=== PATIENT | female | born 1955 | race Caucasian/White ===

== ENCOUNTER 2019-03-17 09:15 | Outpatient (RCR) | payer BC, SELFPAY | END 2019-04-25 23:59 | disposition home or self-care (01) | LOC: ANHDMC 09:15 | PROVIDERS: PCP Internal Medicine; Visit Provider Internal Medicine | DX: E11.9 Type 2 diabetes mellitus without complications (principal); Z71.89 Other specified counseling | CPT/HCPCS: G0108 ==

== ENCOUNTER 2020-01-13 13:51 | Outpatient (CLI) | payer BC, SELFPAY ==
--- NOTE | ~2020-01-13 | XR_ITS ---
XR chest 2V DATE: 01/13/2020 14:13 INDICATION: Cough TECHNIQUE: PA and lateral views COMPARISON: 02/09/2010 two-view chest FINDINGS: Normal heart size. No hilar or mediastinal enlargement. No pulmonary infiltrate or consolid ation, pleural effusion or pulmonary vascular congestion or pneumothorax. IMPRESSION: No active cardiopulmonary disease Reviewed, dictated and finalized at location B. MENT SPECIALIST
== END 2020-01-13 13:52 | disposition home or self-care (01) ==
LOC: ANHIMG 14:01
PROVIDERS: PCP Internal Medicine; Visit Provider Internal Medicine
DX: R05 Cough (principal)
CPT/HCPCS: 71046

== ENCOUNTER 2020-02-22 07:56 | Outpatient (CLI) | payer BC, SELFPAY ==
--- NOTE | ~2020-02-22 | DEXA_ITS ---
Bone Density Report Name: Veronique Hess Age: 64 Sex: Female Ethnicity: White Date of : 1955 Indication: postmenopausal; height loss; prior fracture; Referring Provider: MILY GALLEGOS Study: Bone densitometry was performed. Exam Date: February 22, 2020 Accession number: [id number] Bone Density: Region BMD T-score Z-score Classification AP Spine (L1-L4) 0.916 -1.2 0.5 Osteopenia Femoral Neck (Right) 0.807 -0.4 1.1 Normal Total Hip (Right) 0.894 -0.4 0.8 Normal World Health Organization criteria for BMD impression classify patients as: Normal (T-score at or above -1.0), Osteopenia (T-score between -1.0 and -2.5), or Osteoporosis (T-score at or below -2.5). 10-year Fracture Risk(1): Major Osteoporotic Fracture 11% Hip Fracture 0.5% Reported Risk Factors: [place] (), Neck BMD=0.807, BMI=32.1, previous fracture (1) FRAX(R) Version 3.08. Fracture probability calculated for an untreated patient. Fracture probability may be lower if the patient has received treatment. Previous Exams: Region Exam Age BMD T-score BMD Change BMD Change Date g/cm2 vs Baseline vs Previous AP Spine(L1-L4) 02/22/2020 64 0.916 -1.2 -0.127(-12.2%) -0.127(-12.2%) 09/04/2006 51 1.043 0.0 Total Hip(Right) 02/22/2020 64 0.894 -0.4 -0.078(-8.0%)# -0.078(-8.0%)# 09/04/2006 51 0.972 0.2 *Denotes significance at 95% confidence level, LSC for AP Spine = 0.022 g/cm2, LSC for Total Hip = 0.027 g/cm2 Clinical Information Provided by Patient: Has had a low trauma fracture Patient maximum height was 67 No regular weight bearing exercise Drinks caffeinated beverages Onset of menses at age 14 Number of children 3 Impression: The patient has low bone mass, based on the Total Spine T-score. The patient has an estimated ten-year risk of hip fracture of 0.5% and an estimated ten-year risk of major fracture of 11%, based on the WHO FRAX algorithm. The patient has risk factors, including: previous fracture. No significant bone loss was observed. Discussion: BONE DENSITY IS LOW AT ONE OR MORE SKELETAL SITES. This patient's lowest T-score is low at one or more skeletal sites. It meets the World Health Organization's (WHO) criteria for ?low bone mass? (T-score between -1.0 and -2.5). The patient's 10-year risk of fracture as calculated by FRAX is less than the threshold where pharmacological therapy is recommended by the National Osteoporosis Foundation (NOF). However, all treatment decisions require clinical judgment and
== END 2020-02-22 07:57 | disposition home or self-care (01) ==
PROVIDERS: PCP Internal Medicine; Visit Provider Internal Medicine
DX: Z78.0 Asymptomatic menopausal state (principal); M85.88 Other specified disorders of bone density and structure, other site
CPT/HCPCS: 77080

== ENCOUNTER → 2020-08-25 06:34 | Outpatient (CLI) | payer MEDICARE, SELFPAY ==
[2020-08-25 16:44] LABS: SARS-CoV-2 RNA PCR Negative
== END ==
PROVIDERS: PCP Internal Medicine; Visit Provider Internal Medicine
DX: R68.89 Other general symptoms and signs (principal); Z20.822 Contact with and (suspected) exposure to COVID-19
CPT/HCPCS: C9803; U0003; U0005

== ENCOUNTER 2020-08-27 13:31 | Emergency (ER) | payer MEDICARE, SELFPAY ==
[2020-08-27 13:39] VITALS: BP 143/76; PULSE 101; RESP 16; TEMP 36.2; O2SAT 97
--- NOTE | 2020-08-27 13:45 | ED.URI ---
HPI - URI/Sore Throat General Chief Complaint: Upper Respiratory Infection Stated Complaint: Cough,Drainage Time Seen by Provider: 08/27/20 13:45 Source: patient and RN notes reviewed Mode of arrival: ambulatory Limitations: no limitations History of Present Illness HPI Narrative: 65-year-old female presents to the [facility] with complaints of sore throat, postnasal drip, bilateral ear pressure with runny nose and cough. States symptoms started 3 days ago. Denies shortness of breath, chest pain or abdominal pain. No fevers. Related Data Home Medications Medication Instructions Recorded Confirmed mecobalamin (vitamin B12) 1,000 1,000 mcg PO DAILY 08/30/19 07/06/20 mcg chewable tablet cholecalciferol (vitamin D3) 50 50 mcg PO DAILY 07/06/20 07/06/20 mcg (2,000 unit) capsule metformin 500 mg tablet 500 mg PO BID tablet 07/06/20 07/06/20 Allergies Allergy/AdvReac Type Severity Reaction Status Date / Time Penicillins Allergy Mild pt does Verified 08/27/20 13:52 not remember lisinopril AdvReac Mild cough Verified 08/27/20 13:52 Review of Systems Review of Systems: All systems reviewed & are unremarkable except as noted in HPI and below Constitutional: Constitutional: Reports no additional constitutional complaints, Denies chills and Denies fever(s) Eyes: Eyes: Reports no additional eye complaints ENT: Reports as per HPI, Denies dizziness, Reports nasal congestion, Reports nasal discharge, Reports post nasal drip, Reports sinus pain, Reports sinus pressure, Reports sore throat, Denies throat swelling and Denies tongue swelling Cardiovascular: Cardiovascular: Reports no additional cardiovascular complaints and Denies chest pain Respiratory: Respiratory: Reports as per HPI, Reports cough, Denies dyspnea and Denies wheezing Gastrointestinal: Gastrointestinal: Reports no additional gastrointestinal complaints, Denies abdominal pain, Denies nausea and Denies vomiting Musculoskeletal: Musculoskeletal: Reports no additional musculoskeletal complaints Integumentary/Breasts: Skin/Breast: Reports system reviewed and no additional complaints, except as docu Neurologic: Reports as per HPI and Reports headache(s) Psychiatric: Psychiatric: Reports no additional psychiatric complaints Allergic/Immunologic: Allergic/Immunologic: Reports no additional allergic/immunologic complaints, Denies lip swelling, Denies throat swelling, Denies tongue swelling and Denies wheezing [facility] Family History Family History Father Family history of mental disorder Depression Cerebrovascular accident Family history of chronic obstructive pulmonary disease Family history of lung disease Social History Social History (Updated 07/06/20 @ 08:35 by Shruti Luke MA) Social History: Social Smoker Years smoked: 2 Smoking status: Former smoker Second hand tobacco smoke exposure: Yes Smoking end date: 02/23/79 Alcohol intake: current Drinks per week: 10 Gender identity (if verbalized by the patient): Female Comments At the time of my signature, I reviewed and agree with the nursing past medical, surgical, social, and family history. There is no relevant family history pertinent to the patient complaint. Exam Const: General: no acute distress, alert and ill appearing Nutritional Appearance: well nourished Orientation/consciousness: patient oriented x3 Limitations: no limitations HENMT: Head: normal to inspection Ears: hearing grossly normal bilaterally, external ears normal, EAC's normal and TM abnormal bulging, wth effusion and with fluid behind the TM (Clear fluid) bilateral General nose exam: Normal external nose present and Abnormal mucous membranes and turbinates present boggy; not erythematous Face and sinus: normal facial exam and sinus tenderness Mouth: Yes Normal oral and palatal mucosa present and Yes lip normal Throat: posterior oropharynx nor
== END 2020-08-27 14:10 | disposition home or self-care (01) ==
PROVIDERS: Emergency Provider Nurse Practitioner; PCP Internal Medicine
DX: H65.03 Acute serous otitis media, bilateral (principal); J01.40 Acute pansinusitis, unspecified; Z87.891 Personal history of nicotine dependence; E78.00 Pure hypercholesterolemia, unspecified; I10 Essential (primary) hypertension; Z96.642 Presence of left artificial hip joint; E11.9 Type 2 diabetes mellitus without complications; Z85.828 Personal history of other malignant neoplasm of skin; Z96.611 Presence of right artificial shoulder joint
CPT/HCPCS: 87081; 87880; 99213; G0463

== ENCOUNTER → 2021-01-16 01:46 | Outpatient (CLI) | payer MEDICARE, SELFPAY ==
[2021-01-16 18:14] LABS: SARS-CoV-2 RNA PCR Negative
== END ==
PROVIDERS: PCP Internal Medicine; Visit Provider Internal Medicine
DX: R68.89 Other general symptoms and signs (principal); Z20.822 Contact with and (suspected) exposure to COVID-19
CPT/HCPCS: 36415; C9803; U0003; U0005

== ENCOUNTER 2022-06-24 15:48 | Outpatient (CLI) | payer MEDICARE, SELFPAY ==
--- NOTE | ~2022-06-24 | XR_ITS ---
AP and lateral views of the sacrum/coccyx CLINICAL HISTORY: Pain, status post fall FINDINGS: No acute fracture or dislocation identified. There is minimal degenerative change of the ri ght hip joint. Left hip arthroplasty in place. SI joints appear intact. Soft tissues are unremarkable . IMPRESSION: No acute abnormality seen. Minimal right hip joint degenerative change. Left hip arthroplasty. Reviewed, dictated and finalized at location .
== END 2022-06-24 15:49 | disposition home or self-care (01) ==
PROVIDERS: PCP Nurse Practitioner Family; Visit Provider Nurse Practitioner Family
DX: M79.18 Myalgia, other site (principal)
CPT/HCPCS: 72220

== ENCOUNTER 2022-07-19 10:54 | Outpatient (CLI) | payer MEDICARE, SELFPAY ==
--- NOTE | ~2022-07-19 | DEXA_ITS ---
Bone Density Report Name: MICA MAHAN Age: 66 Sex: Female Ethnicity: White Date of : 1955 Indication: postmenopausal; screening for osteoporosis; height loss; cancer; Referring Provider: PERI SINGH Study: Bone densitometry was performed. Exam Date: July 19, 2022 Accession number: [id number] Bone Density: Region BMD T-score Z-score Classification AP Spine(L1-L4) 0.953 -0.9 1.0 Normal Femoral Neck (Right) 0.814 -0.3 1.3 Normal Total Hip (Right) 0.870 -0.6 0.7 Normal World Health Organization criteria for BMD impression classify patients as: Normal (T-score at or above -1.0), Osteopenia (T-score between -1.0 and -2.5), or Osteoporosis (T-score at or below -2.5). 10-year Fracture Risk: FRAX not reported because: All T-scores for Spine Total, Hip Total, Femoral Neck at or above -1.0 Clinical Information Provided by Patient: Has used the following medications: Vitamin D, Calcium Has the following medical conditions: Cancer Patient maximum height was 67 Menopause Age: 40 Drinks caffeinated beverages Onset of menses at age 13 Number of children 2 Impression: The patient has normal bone mass. Discussion: BONE DENSITY IS ABOVE THE MINIMUM DESIRABLE LEVEL AT ALL SKELETAL SITES TESTED. This patient?s bone mineral density is above the minimum desirable level (T-score -1.0 or better) at all sites measured. The patient should follow a healthful lifestyle (good nutrition with adequate calcium and vitamin D, and appropriate weight-bearing exercise). Follow-Up: Consider repeating this study in 5 years or sooner if there is some new clinical indication. Reported by: SHADI on 07/19/2022 11:29:00 AM. Reviewed, dictated and finalized at location Carly HOWARD
== END 2022-07-19 10:55 | disposition home or self-care (01) ==
PROVIDERS: PCP Nurse Practitioner Family; Visit Provider Registered Nurse
DX: Z78.0 Asymptomatic menopausal state (principal)
CPT/HCPCS: 77080

== ENCOUNTER 2024-04-13 15:18 | Outpatient (CLI) | payer MEDICARE, SELFPAY ==
--- NOTE | ~2024-04-13 | XR_ITS ---
EXAMINATION: XR sacroiliac joints min 3V DATE: 04/13/2024 15:44 INDICATION: Sacrococcygeal disorders, not elsewhere classified. TECHNIQUE: 3 views of the sacroiliac joints were obtained. COMPARISON: None. FINDINGS: There is a total left hip arthroplasty in near-anatomic alignment. There is moderate right hip osteoarthritis. There is mild osteoarthritis of the sacroiliac joints. IMPRESSION: 1. Mild osteoarthritis of the sacroiliac joints. Reviewed, dictated and finalized at location A. TRICAL APPRENTICE
--- NOTE | ~2024-04-13 | XR_ITS ---
EXAMINATION: XR hip RT min 2V DATE: 04/13/2024 15:44 INDICATION: Right hip pain. TECHNIQUE: 2 views of right hip were obtained. COMPARISON: None. FINDINGS: Alignment is normal. No fracture. There is moderate right hip osteoarthritis. Partially vis ualized is a total left hip arthroplasty. IMPRESSION: 1. Moderate right hip osteoarthritis. Reviewed, dictated and finalized at location A. ORKS COMPUTER CONSULTANT
--- OUTSIDE RECORDS SUMMARY | 2024-04-13 15:23 | XMS_ITS | Encounter Summary ---
Author Organization [facility] Address [address] [place] [address] Care Team Providers Care Tire Duster Name Role Phone Shamir Iqbal MD Primary Care Provider [phone] Darci Negron MD Unavailable Jones Iqbal MD Unavailable Rosaline Roche DO Unavailable Encounter Details Date Type Department Care Team (Late st Contact Info) Description 09/07/2023 Lab Requisition [facility] - DermPath Lab [address] [place] [address] Rosaline Roche DO [address] [facility] [address] [place] [address] Social History Tobacco Use Types Packs/Day Years Used Date Smoking Tobacco: Former Cigarettes Q uit: 1979 Smokeless Tobacco: Never Comments:Quit smoking cigare ttes when she was 23, just a social smoker. Alcohol Use Standard Drinks/Week Comments Yes 2 (1 standard drink = 0.6 oz pur e alcohol) Sex and Gender Information Value Date Recorded Sex Assigned at Not on file Gender Identity Not on file Sexual Orientation Not on file documented as of this encounter Plan of Treatment Not on file documented as of this encounter Procedures Procedure Name Priority Date/Time Associated Diagnosis Comments DERMATOPATHOLOGY Routine 09/07/2023 9:24 AM CDT documented in this encounter Results * DERMATOPATHOLOGY (09/07/2023 9:24 AM CDT) Case Report Dermatopathology Report Case: [id number] Authorizing Provider: Rosaline Roche DO Collected: 09/07/2023 09:24 AM Ordering Location: [facility] - Received: 09/08/2023 01:12 PM DermPath Lab Pathologist: Alexandra Barnes MD Specimen: Skin, left upper back 11:36 AM CDT DERMATOPATHOLOGY LABORATORY Final Diagnosis Specimen A. SKIN, left upper back: BASAL CELL CARCINOMA, NODULAR TYPE (C44.519) 11:36 AM CDT DERMATOPATHOLOGY LABORATORY Clinical History R/O BCC 11:36 AM CDT DERMATOPATHOLOGY LABORATORY Gross Description Specimen A: Received is one formalin filled container labeled with the patient's name and designated left upper back. The specimen consists of a shave biopsy measuring 5x5x1 mm. Jar 0. 11:36 AM CDT DERMATOPATHOLOGY LABORATORY Microscopic Description Specimen A. SKIN, left upper back: Within the dermis there are aggregates of basaloid cells with a high nuclear to cytoplasmic ratio and peripheral palisading. 11:36 AM CDT DERMATOPATHOLOGY LABORATORY Disclaimer An external and internal positive and negative controls are appropriate for the histochemical, immunohistochemical and immunofluorescence stain(s) in this case (if any), except where stated explicitly. The performance characteristics of the stain(s) cited in this report were developed and its performance characteristic determined by the Dermatopathology Laboratory at [facility], directed by Dr. Jadiel Saba. These tests need not be, and therefore are not, approved by the [place] Food and Drug Administration. The tests are used for clinical purposes. Billing Codes Specimen Charges Stain Charges 15904 1 11:36 AM CDT DERMATOPATHOLOGY LABORATORY Embedded Images 11:36 AM CDT DERMATOPATHOLOGY LABORATORY Pathology/Cytolo gy TISSUE SPECIMEN FROM SKIN / Unknown 09/07/2023 9:24 AM CDT 09/08/2023 1:12 PM CDT Rosaline Roche DO LAB - PATHOLOGY/C YTOLOGY ORDERABLES DERMATOPATHOLOGY LABORATORY [facility] - Department of Dermatology [facility] Specialized Medicine [address] [phone] documented in this encounter Visit Diagnoses Not on filedocumented in this encounter Care Teams Tire Duster Relationship Specialty Start Date End Date Shamir Iqbal MD [address] [place] [phone] PCP - General Family Medicine 06/03/23 Darci Negron MD [address] [facility] [address] [place] [address] Cardiology 06/03/23 Jones Iqbal MD [address] [facility] [address] [place] [address] Ophthalmology 06/03/23 Rosaline Roche DO [address] [place] [address] Surgeon Dermatology 06/03/23 documented as of this encounter
--- OUTSIDE RECORDS SUMMARY | 2024-04-13 15:25 | XMS_ITS | Clinical Summary ---
Author Organization [facility] Address [address] [facility] [place] [address] Care Team Providers Care Crime Victim Specialist Name Role Phone Shamir Iqbal MD Primary Care Provider [phone] Darci Negron MD Unavailable [phone] Jones Iqbal MD Unavailable [phone] Rosaline Roche DO Unavailable [phone] Source Comments [facility],non-owned Affiliates and Associated Physician Practices is amultiple site organization consisting of ambulatory clinics and hospital sitesin [place], [place], [place] and [place]. This disclosure is being madepursuant to the Care Everywhere program and may not contain all information available regarding this patient. Last updated 17.[facility] Allergies Active Allergy Reactions Criticality Noted Date Comments Lisinopril Cough,Other Low 03/20/2023 Medications * Be aware that medications may not be up to date on this document. Alwaysverify current medications with the patient. Medication Sig Dispensed Refills Start Date End Date Status atorvastatin (Lipitor) 40 MG tablet 1 tab(s) orally once a day Active Cholecalciferol 1.25 MG (65636 UT) 1 cap(s) orally once a week Active OneTouch Verio test strip USE DIRECTED DAILY 09/05/2022 Act keyur ipratropium (Atrovent) 0.06 % nasal spray USE 2 SPRAYS INTRANASALLY THREE TIMES DAILY 05/08/2023 Active levocetirizine (Xyzal) 5 MG tablet 1 tab(s) orally once a day (in the evening) for 30 day(s) Active losartan (Cozaar) 100 MG tablet 1 tab(s) orally once a day Active metFORMIN (Glucophage) 500 MG tablet Take 2 (two) tablets by mouth once daily 05/19/2023 Active naproxen (Naprosyn) 500 MG tablet Take 1 (one) tablet by mouth 2 times daily 06/24/2022 Active Ozempic, 0.25 or 0.5 MG/DOSE, 2 MG/3ML SOPN INJECT 0.5 MG UNDER THE SKIN WEEKLY 12/11/2022 Active olopatadine (Pataday) 0.2 % ophthalmic solution Instill 1 (one) drop into both eyes once daily Active Multiple Vitamins-Minerals (EYE VITAMINS PO) Active Active Problems Problem Noted Date Diagnosed Date Dermatochalasis of both upper eyelids 06/05/2023 Type 2 diabetes mellitus without retinopathy 02/2018 Immunizations Name Administration Dates Next Due HEP A VACCINE, ADULT 03/11/2018,09/02/2017 HEP B VACCINE, ADULT 3 DOSE 03/11/2018, 8,09/02/2017 Family History Medical History Relation Name Comments Macular Degeneration Father Blindness Neg Hx Glaucoma Neg Hx Relation Name Status Comments Father Social History Tobacco Use Types Packs/Day Years Used Date Smoking Tobacco: Former Cigarettes Q uit: 1978 Smokeless Tobacco: Never Tobacco Cessation:Counseling Given: No Comments:Quit smoking cigarettes when she was 23, just a social smoker. Alcohol Use Standard Drinks/Week Comments Yes 2 (1 standard drink = 0.6 oz pur e alcohol) Sex and Gender Information Value Date Recorded Sex Assigned at Not on file Gender Identity Not on file Sexual Orientation Not on file Plan of Treatment Health Maintenance Due Date Last Done Comments COLOGUARD (AGES 45-75) - COLON CA SCREENING 1955 COLON MONITORING 1955 COLONOSCOPY - COLON CA SCREENING 1955 CT COLONOGRAPHY - COLON CA SCREENING 1955 Colorectal Cancer Screening 1955 FIT - COLON CA SCREENING 1955 FLEX SIG - COLON CA SCREENING 1955 MEDICARE AWV 12 MONTHS 1955 HEPATITIS C SCREENING 08/06/1973 DIABETES-SERUM CREATININE 08/10/1973 DTAP/TDAP/TD VACCINES (1 - Tdap) 08/10/1974 PNEUMOCOCCAL VACCINE 50+ (1 of 2 - PCV) 08/10/1974 ZOSTER VACCINE (1 of 2) 08/10/2005 DIABETES RETINOPATHY SCREENING 06/03/2023 DIABETES-FOOT EXAM WITH MONOFILAMENT 06/03/2023 DIABETES-HGB A1C 06/03/2023 COVID-19 VACCINE ( season) 2023 04/23/2020, 04/02/2020 INFLUENZA VACCINE (#1) 2023 , 10/24/2019, 12/02/2018, Additional history exists DEPRESSION SCREENING 02/24/2024 DIABETES - URINE PROTEIN SCREENING 02/24/2024 MAMMOGRAM 04/08/2024 04/08/2022, 03/26, 02/06/2021, Additional history exists Respiratory Syncytial Virus (RSV) Vaccine Pt: or over 60 yrs (1 - 1-dose 75+ series) 08/10/2030 BONE DENSITY TESTING Completed 10/13/2013 HEPATITIS A VACCINE Completed 03/11/2018, 8 HEPATITIS B VACCINE Completed 03/11/2018, 10/05/2017, 09/02/2017 HIB VACCINE Aged Out No longer eligi ble based on patient's age to complete this topic HPV VACCINE Aged Out No longer eligi ble based on patient's age to complete this topic MENINGOCOCCAL (Group B) VACCINE Aged Out No longer eligible based on patient's age to complete this topic MENINGOCOCCAL VACCINE Aged Out No mary beth marv eligible based on patient's age to complete this topic Care Teams Crime Victim Specialist Relationship Specialty Start Date End Date Shamir Iqbal MD [address] [place] [phone] PCP - General Family Medicine 06/03/23 Darci Negron MD [facility] [facility] [address] [place] [phone] Cardiology 06/03/23 Jones Iqbal MD [address] [facility] [address] [place] [address] Ophthalmology 06/03/23 Rosaline Roche DO [address] [place] [address] Surgeon Dermatology 06/03/23
--- OUTSIDE RECORDS SUMMARY | 2024-04-13 15:25 | XMS_ITS | Referral Summary ---
Author Organization [facility] Address [address] [facility] [place] [address] Care Team Providers Care Entertainment Centre Manager Name Role Phone Shamir Iqbal MD Primary Care Provider [phone] Darci Negron MD Unavailable [phone] Jones Iqbal MD Unavailable [phone] Rosaline Roche DO Unavailable [phone] Source Comments [facility],non-owned Affiliates and Associated Physician Practices is amultiple site organization consisting of ambulatory clinics and hospital sitesin [place], [place], [place] and [place]. This disclosure is being madepursuant to the Care Everywhere program and may not contain all information available regarding this patient. Last updated 17.[facility] Allergies Active Allergy Reactions Criticality Noted Date Comments Lisinopril Cough,Other Low 03/20/2023 Medications * Be aware that medications may not be up to date on this document. Alwaysverify current medications with the patient. Medication Sig Dispensed Refills Start Date End Date Status atorvastatin (Lipitor) 40 MG tablet 1 tab(s) orally once a day Active Cholecalciferol 1.25 MG (13682 UT) 1 cap(s) orally once a week [...] 03/11/2018,09/02/2017 HEP B VACCINE, ADULT 3 DOSE 03/11/2018,,09/02/2017 Social History Tobacco Use Types Packs/Day Years [...] Orientation Not on file Plan of Treatment Not on file Care Teams Entertainment Centre Manager Relationship Specialty Start Date End Date Shamir Iqbal MD [address] [place] [phone] PCP - General Family Medicine 06/03/23 Darci Negron MD [address] [facility] [address] [place] [address] Cardiology 06/03/23 Jones Iqbal MD [address] [facility] [address] [place] [address] Ophthalmology 06/03/23 Rosaline Roche DO [address] [place] [address] Surgeon Dermatology 06/03/23
--- OUTSIDE RECORDS SUMMARY | 2024-04-13 15:25 | XMS_ITS | Clinical Summary ---
Author Organization [facility] Address [address] [place] [address] Care Team Providers Care In School Suspension Aide Name Role Phone Micah Herman MD Primary Care Provider [phone] Allergies Active Allergy Reactions Criticality Noted Date Comments Lisinopril Cough Low 03/20/2023 Penicillins Other (See comments) Low 10/05/2017 Reaction: Patient was a child when reaction happened Medications atorvastatin (LIPITOR) 40 mg tablet Active clindamycin (CLEOCIN) 150 mg capsule 4 Active ipratropium (ATROVENT) 42 mcg (0.06 %) nasal spray USE 2 SPRAYS INTRANASALLY THREE TIMES DAILY 4 Active losartan (COZAAR) 100 mg tablet Active metFORMIN (GLUCOPHAGE) 500 mg tablet Active semaglutide (Ozempic) 1 mg/dose (2 mg/1.5 mL) pen injector injection Active Ozempic 0.25 mg or 0.5 mg (2 mg/3 mL) pen injector injection INJECT 0.5 MG UNDER THE SKIN WEEKLY 3 Active Ozempic 1 mg/dose (4 mg/3 mL) pen injector injection ADMINISTER 1 MG UNDER THE SKIN WEEKLY 3 Active Active Problems Problem Noted Date Diagnosed Date Arthralgia of hip 08/28/2015 Arthritis of foot 03/08/2015 Benign neoplasm of skin of trunk 03/07/2015 History of nonmelanoma skin cancer 03/07/2015 History of malignant neoplasm of skin 03/07/2015 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 Fracture of calcaneus 10/19/2014 Infectious warts 08/30/2014 Multiple benign melanocytic nevi 08/30/2014 Pain of foot 06/16/2014 Surgical follow-up care 06/28/2012 Lentigo 03/25/2012 Osteoarthritis of hip 12/01/2011 Skin neoplasm 05/28/2011 Skin tag 05/28/2011 Immunizations Immunization Administration Dates Next Due Flucelvax Influenza Quad 12/02/2018 Hep A, Adult 03/11/2018,09/02/2017 Hep B Vaccine 03/11/2018,10/05/2017,09/02/2017 Influenza, Quadrivalent, Spl it, Preservative Free, Intramuscular 10/24/2019,11/09/2017 Influenza, Trivalent, IM (MDV) 01/11/2014,2012 Influenza, Trivalent, Preser vative Free, Intramuscular 02/25/2015 Influenza, Unspecified 11/30/2022 ZOSTER LIVE 01/11/2014 Medical History Medical History Date Comments Basal cell carcinoma of skin of face Basal cell carcinoma of skin of face - (Added by TW Conv) Aftercare following joint re placement surgery Aftercare following joint re placement - (Added by TW Conv) Personal history of diseases of skin or subcutaneous tissue History of seborrheic kerato sis - (Added by TW Conv) Inflamed seborrheic keratosis In flamed seborrheic keratosis - (Added by TW Conv) Family History Medical History Relation Name Comments Hypertension Father Family history of hypertension - (Added by TW Conv) Alcohol abuse Mother Family history of alcoholism - (Added by TW Conv) Heart disease Mother Family history of cardiac disorder - (Added by TW Conv) Hypertension Mother Family history of hypertension - (Added by TW Conv) Relation Name Status Comments Father Mother Social History Tobacco Use Types Packs/Day Years Used Date Smoking Tobacco: Never Smokeless Tobacco: Never Tobacco Cessation:Counseling Given: Not Answered Personal Safety Answer Date Recorded Getting School Help Needed Not on file 03/03 Comments Unknown Sex and Gender Information Value Date Recorded Sex Assigned at Not on file Legal Sex Female 9:42 AM [facility] Gender Identity Female 01/27/2022 9:47 AM [facility] Sexual Orientation Not on file Obstetrics History Last Filed Vital Signs Vital Sign Reading Time Taken Comments Blood Pressure 125/80 05/27/2012 12:37 AM CDT Pulse 76 05/27/2012 12:37 AM CDT Temperature - - Respiratory Rate - - Oxygen Saturation 96% 05/27/2012 12:37 AM CDT Inhaled Oxygen Concentration - - Weight 82.1 kg (181 lb) 03/20/2023 10:42 AM [facility] Height 168.9 cm (5' 6.5 ) 03/20/2023 10:42 AM CS T Body Mass Index 28.78 03/20/2023 10:42 AM [facility] Plan of Treatment Health Maintenance Due Date Last Done Comments Colon Cancer Screening-Colonoscopy 1955 Depression Screening 1955 Fall Risk Assessment 1955 Hepatitis C Screening 1955 DTaP/Tdap/Td Vaccine (1 - Tdap) 08/10/1966 Pneumococcal vaccine 65+ (1 of 1 - PCV) 08/10/2005 Zoster Vaccine (2 of 3) 03/08/2014 01/11/2014 Osteoporosis Screening-Bone Density Scan 10/14/2015 10/13/2013 Well Visit 65+ 08/10/2020 Covid-19 Vaccine (3 - 2023-2 5 season) 2023 04/23/2020, 04/02/2020 Influenza Vaccine (#1) 2023 , 10/24/2019, 12/02/2018, Additional history exists Breast Cancer Screening-Mammogram 09/30/2024 10/01/2023, 04/08/2022, 02/06/2021, Additional history exists Hepatitis B Screening Completed 03/11/2018 , 10/05/2017, 09/02/2017 Procedures Procedure Name Priority Date/Time Associated Diagnosis Comments SCREENING MAMMOGRAM BILATERAL W LEX Schedule Routine, Read Routine (OP Routine) 10/01/2023 8:28 AM CDT Screening mammogram, encounter for DEXA AXIAL SKELETON BONE DENSITY 1 OR MORE SITES Routine 10/13/2013 10:38 AM CDT from Last 3 Months or Most Recently Relevant to Health Maintenance Results * Screening Mammogram Bilateral W Lex (10/01/2023 8:28 AM CDT) Anatomical Region Laterality Modality Breast Bilateral Mammography Narrative 10/01/2023 1:39 PM CDT Mammogram Technique: Bilateral Digital Breast Tomosynthesis, Bilateral C-view 2D Screening mammogram. Views obtained: bilateral craniocaudal and bilateral mediolateral oblique. Computer Aided Detection was performed. Mammogram Findings: The present examination has been compared to prior imaging studies performed at [facility] on 02/06/2021, 04/08/2022 and 09/08/2022. There are scattered areas of fibroglandular density. There is no suspicious abnormality in either breast. Impression: There is no mammographic evidence of malignancy. Annual screening mammography is recommended. OVERALL FINAL ASSESSMENT: BI-RADS CATEGORY 1: Negative. Procedure Note Lorrie Bell MD - 10/01/2023 Mammogram Technique: Bilateral Digital Breast Tomosynthesis, Bilateral C-view 2D Screening mammogram. Views obtained: bilateral craniocaudal and bilateral mediolateral oblique. Computer Aided Detection was performed. Mammogram Findings: The present examination has been compared to prior imaging studies performed at [facility] on 02/06/2021, 04/08/2022 and 09/08/2022. There are scattered areas of fibroglandular density. There is no suspicious abnormality in either breast. Impression: There is no mammographic evidence of malignancy. Annual screening mammography is recommended. OVERALL FINAL ASSESSMENT: BI-RADS CATEGORY 1: Negative. us Self Screening Mammogram IMG MAMMO PROCEDURES Fi nal Result * Dexa Axial Skeleton Bone Density 1 or 2 Site (10/13/2013 10:38 AM CDT) Anatomical Region Laterality Modality Body N/A Radiographic Suzie ging 10/13/2013 10:3 8 AM CDT Narrative 10/13/2013 2:04 PM CDT KEILA MARSHALL M.D. GILLES MARES, FINAL REPORT The radiology attending physician has personally reviewed this study, and has reviewed and/or edited this written report and agrees with it. ACC# Date Time Exam [id number] Oct 13, 2013 10:38:00 [id number] BONE DEXA (2 sites) EXAMINATION: BONE DENSITOMETRY OF THE SPINE AND HIP DATE OF STUDY: 10/13/2013 HISTORY: 58-year-old postmenopausal woman. She is not on any anti-resorptive treatment. Evaluate bone mineral density. Additional risk factors for fracture: previous fracture. FINDINGS (SPINE): The bone mineral density of L1-L4 was assessed by dual-energy x-ray absorptiometry. The average bone mineral density within this region is 0.897 gm/sq-cm. This is 0.1 standard deviations below the mean of the average bone mineral density for age- and gender-matched subjects (the Z-score). It is 1.4 standard deviations below the mean peak bone mineral density in young adults (the T-score). FINDINGS (FEMORAL NECK): The bone mineral density of the right femoral neck was assessed by dual-energy x-ray absorptiometry. The average bone mineral density within the femoral neck region is 0.847 gm/sq-cm. This is 1.2 standard deviations above the mean of the average bone mineral density for age- and gender-matched subjects (the Z-score). It is equal to the mean peak bone mineral density in young adults (the T-score). FINDINGS (TOTAL HIP): The bone mineral density of the right hip was assessed by dual-energy x-ray absorptiometry. The average bone mineral density within the total hip region is 0.923 gm/sq-cm. This is 0.7 standard deviations above the mean of the average bone mineral density for age- and gender-matched subjects (the Z-score). It is 0.2 standard deviations below the mean peak bone mineral density in young adults (the T-score). SUMMARY OF CURRENT RESULTS: Region BMD T-score Z-score AP Spine (L1-L4) 0.897 -1.4 -0.1 Femoral Neck (Right) 0.847 0.0 1.2 Total Hip (Right) 0.923 -0.2 0.7 IMPRESSION: - 1. The bone mineral density of the lumbar spine is mildly decreased. 2. The bone mineral density of the right femoral neck is normal. 3. The bone mineral density of the right total hip is normal. 4. Overall, the above findings are diagnostic of low bone mass (osteopenia) by WHO criteria. 5. Based on the FRAX fracture risk model, the 10-year probability for major osteoporotic fracture is 9.7% and that for hip fracture is 0.2%. This 10-year fracture risk estimate was calculated using the risk factors noted in the history above, along with the femoral neck bone density. FRAX is intended to help guide treatment decisions in men over age 50 and postmenopausal women with low bone mass (osteopenia). The National Osteoporosis Foundation (NOF) recommends that FDA-approved medical therapies be considered in postmenopausal women and men age 50 years and older with low bone mass whose 10-year fracture probability by FRAX is >= 20% for major osteoporotic fracture or >= 3% for hip fracture. However, all treatment decisions require clinical judgment and consideration of individual patient factors, including patient preferences, comorbidities, previous drug use, risk factors not captured in the FRAX model (e.g., frailty, falls, vitamin D deficiency, increased bone turnover, interval significant decline in bone density) and possible under- or overestimation of fracture risk by FRAX. General comments regarding interpretation of bone density measurements: a) In children, premenopausal woman and males under age 50 not at increased risk for fractures only Z-scores, not T-scores are used to indicate risk. A Z-score above -2.0 is defined as within the expected range for age and Z-score at or less than -2.0 is below the expected range for age . A Z-score below the expected range for age in a patient with recent fractures and/or chronic corticosteroid treatment is consistent with a diagnosis of osteoporosis. b) In post menopausal women and males over 50, comparison of the measured bone mineral density with the average value in young normal subjects (the T-score ) has been found to be useful in assessing fracture risk. Fracture risk approximately doubles for each 1.0 standard deviation (SD) in individual's hip or spine bone mineral density is below the average value of young normal subjects. The World Health Organization (WHO) has defined T-scores of -1.0 to -2.5 as diagnostic of low bone mass (OSTEOPENIA), and T-scores of -2.5 or lower to be diagnostic of OSTEOPOROSIS, based on the site of lowest bone density. Note that there will be a change in reporting format and reference databases as patients move from the younger population (group a) to the older population (group b) The National Osteoporosis Foundation (www.nof.org) recommends adequate intake of calcium and vitamin D and regular weight-bearing exercise in all patients. They recommend pharmacologic treatment in postmenopausal women and men age 50 and older presenting with any of the followin) Osteoporosis, after appropriate evaluation to exclude secondary causes. 2) A hip or vertebral (clinical or radiographic) fracture, regardless of the bone density. 3) Low bone mass (Osteopenia) and one or more of: other prior fractures, secondary causes associated with high risk of fracture (such as glucocorticoid use or total immobilization), or computed high risk of fracture (10-yr probability of hip fracture >= 3% or a 10-yr probability of any major osteoporosis-related fracture >= 20% based on the [place].-adapted WHO algorithm), available at http://www.shef.ac.uk/FRAX). Requested By: Dictated By: GILLES MARES on Oct 13 2013 10:38A This document has been electronically signed by: KEILA MARSHALL M.D. on Oct 13 2013 2:04P [id number] Procedure Note Provider, MD Mary - 06/19/2016 KEILA MARSHALL M.D. GILLES MARES, FINAL REPORT The radiology attending physician has personally reviewed this study, and has reviewed and/or edited this written report and agrees with it. ACC# Date Time Exam [id number] Oct 13, 2013 10:38:00 [id number] BONE DEXA (2 sites) EXAMINATION: BONE DENSITOMETRY OF THE SPINE AND HIP DATE OF STUDY: 10/13/2013 HISTORY: 58-year-old postmenopausal woman. She is not on any anti-resorptive treatment. Evaluate bone mineral density. Additional risk factors for fracture: previous fracture. FINDINGS (SPINE): The bone mineral density of L1-L4 was assessed by dual-energy x-ray absorptiometry. The average bone mineral density within this region is 0.897 gm/sq-cm. This is 0.1 standard deviations below the mean of the average bone mineral density for age- and gender-matched subjects (the Z-score). It is 1.4 standard deviations below the mean peak bone mineral density in young adults (the T-score). FINDINGS (FEMORAL NECK): The bone mineral density of the right femoral neck was assessed by dual-energy x-ray absorptiometry. The average bone mineral density within the femoral neck region is 0.847 gm/sq-cm. This is 1.2 standard deviations above the mean of the average bone mineral density for age- and gender-matched subjects (the Z-score). It is equal to the mean peak bone mineral density in young adults (the T-score). FINDINGS (TOTAL HIP): The bone mineral density of the right hip was assessed by dual-energy x-ray absorptiometry. The average bone mineral density within the total hip region is 0.923 gm/sq-cm. This is 0.7 standard deviations above the mean of the average bone mineral density for age- and gender-matched subjects (the Z-score). It is 0.2 standard deviations below the mean peak bone mineral density in young adults (the T-score). SUMMARY OF CURRENT RESULTS: Region BMD T-score Z-score AP Spine (L1-L4) 0.897 -1.4 -0.1 Femoral Neck (Right) 0.847 0.0 1.2 Total Hip (Right) 0.923 -0.2 0.7 IMPRESSION: - 1. The bone mineral density of the lumbar spine is mildly decreased. 2. The bone mineral density of the right femoral neck is normal. 3. The bone mineral density of the right total hip is normal. 4. Overall, the above findings are diagnostic of low bone mass (osteopenia) by WHO criteria. 5. Based on the FRAX fracture risk model, the 10-year probability for major osteoporotic fracture is 9.7% and that for hip fracture is 0.2%. This 10-year fracture risk estimate was calculated using the risk factors noted in the history above, along with the femoral neck bone density. FRAX is intended to help guide treatment decisions in men over age 50 and postmenopausal women with low bone mass (osteopenia). The National Osteoporosis Foundation (NOF) recommends that FDA-approved medical therapies be considered in postmenopausal women and men age 50 years and older with low bone mass whose 10-year fracture probability by FRAX is >= 20% for major osteoporotic fracture or >= 3% for hipfracture. However, all treatment decisions require clinical judgment and consideration of individual patient factors, including patient preferences, comorbidities, previous drug use, risk factors not captured in the FRAX model (e.g., frailty, falls, vitamin D deficiency, increased bone turnover, interval significant decline in bone density) and possible under- or overestimation of fracture risk by FRAX. General comments regarding interpretation of bone density measurements: a) In children, premenopausal woman and males under age 50 not at increased risk for fractures only Z-scores, not T-scores are used to indicate risk. A Z-score above -2.0 is defined as within the expected range for age and Z-score at or less than -2.0 is below the expected range for age . A Z-score below the expected range for age in a patient with recent fractures and/or chronic corticosteroid treatment is consistent with a diagnosis of osteoporosis. b) In post menopausal women and males over 50, comparison of the measured bone mineral density with the average value in young normal subjects (the T-score ) has been found to be useful in assessing fracture risk. Fracture risk approximately doubles for each 1.0 standard deviation (SD) in individual's hip or spine bone mineral density is below the average value of young normal subjects. The World Health Organization (WHO) has defined T-scores of -1.0 to -2.5 as diagnostic of low bone mass (OSTEOPENIA), and T-scores of -2.5 or lower to be diagnostic of OSTEOPOROSIS, based on the site of lowest bone density. Note that there will be a change in reporting format and reference databases as patients move from the younger population (group a) to the older population (group b) The National Osteoporosis Foundation (www.nof.org) recommends adequate intake of calcium and vitamin D and regular weight-bearing exercise in all patients. They recommend pharmacologic treatment in postmenopausal women and men age 50 and older presenting with any of the followin) Osteoporosis, after appropriate evaluation to exclude secondary causes. 2) A hip or vertebral (clinical or radiographic) fracture,regardless of the bone density. 3) Low bone mass (Osteopenia) and one or more of: other prior fractures, secondary causes associated with high risk of fracture (such as glucocorticoid use or total immobilization), or computed high risk of fracture (10-yr probability of hip fracture >= 3% or a 10-yr probability of any major osteoporosis-related fracture >= 20% based on the [place].-adapted WHO algorithm), available at http://www.shef.ac.uk/FRAX). Requested By: Dictated By: GILLES MARES on Oct 13 2013 10:38A This document has been electronically signed by: KEILA MARSHALL M.D. on Oct 13 2013 2:04P [id number] Historical Provider MD WATKINS DXA PROCEDURES Final Result from Last 3 Months or Most Recently Relevant to Health Maintenance Insurance MEDICARE AARP [facility] [employer] [address] [facility] [place] [address] Care Teams In School Suspension Aide Relationship Specialty Start Date End Date Micah Herman MD PCP - General Internal Medicine 04/07/22
--- OUTSIDE RECORDS SUMMARY | 2024-04-13 15:25 | XMS_ITS | Patient Health Summary ---
Author Organization [facility] Address [address] [place] [address] Care Team Providers Care Critical Care Nurse Name Role Phone Shamir Iqbal MD Primary Care Provider [phone] Darci Negron MD Unavailable [phone] Jones Iqbal MD Unavailable [phone] Rosaline Roche DO Unavailable [phone] Note from [facility],non-owned Affiliates and Associated Physician Practices is amultiple site organization consisting of ambulatory clinics and hospital sitesin [place], [place], [place] and [place]. This disclosure is being madepursuant to the Care Everywhere program and may not contain all information available regarding this patient. Last updated 17.[facility] Allergies * Lisinopril(Cough,Other) -Low Criticality * Penicillins(Other),Inactive Medications * Be aware that medications may not be up to date on this document. Alwaysverify current medications with the patient. * atorvastatin (Lipitor) 40 MG tablet 1 tab(s) orally once a day * Cholecalciferol 1.25 MG (15432 UT) 1 cap(s) orally once a week * OneTouch Verio test strip(Started 09/05/2022) USE DIRECTED DAILY * ipratropium (Atrovent) 0.06 % nasal spray(Started 05/08/2023) USE 2 SPRAYS INTRANASALLY THREE TIMES DAILY * levocetirizine (Xyzal) 5 MG tablet 1 tab(s) orally once a day (in the evening) for 30 day(s) * losartan (Cozaar) 100 MG tablet 1 tab(s) orally once a day * metFORMIN (Glucophage) 500 MG tablet(Started 05/19/2023) Take 2 (two) tablets by mouth once daily * naproxen (Naprosyn) 500 MG tablet(Started 06/24/2022) Take 1 (one) tablet by mouth 2 times daily * Ozempic, 0.25 or 0.5 MG/DOSE, 2 MG/3ML SOPN(Started 12/11/2022) INJECT 0.5 MG UNDER THE SKIN WEEKLY * olopatadine (Pataday) 0.2 % ophthalmic solution Instill 1 (one) drop into both eyes once daily * Multiple Vitamins-Minerals (EYE VITAMINS PO) Active Problems Problem Noted Date Diagnosed Date Dermatochalasis of both upper eyelids 06/05/2023 Type 2 diabetes mellitus without retinopathy 02/2018 Immunizations * HEP A VACCINE, ADULT(Given 03/11/2018, 09/02/2017) * HEP B VACCINE, ADULT 3 DOSE(Given 03/11/2018, 10/05/2017, 09/02/2017) Social History Tobacco Use Types Packs/Day Years [...] on file Sexual Orientation Not on file Procedures * DERMATOPATHOLOGY(Performed 09/07/2023) * DERMATOPATHOLOGY(Performed 09/11/2021) * DERMATOPATHOLOGY(Performed 08/28/2021) * DERMATOPATHOLOGY(Performed 07/17/2021) * DERMATOPATHOLOGY(Performed 07/12/2020) Results * DERMATOPATHOLOGY (09/07/2023 9:24 AM CDT) Only the most recent of5 resultswithin the time period is included. Case Report Dermatopathology Report Case: [id number] Authorizing Provider: Rosaline Roche DO Collected: 09/07/2023 09:24 AM Ordering Location: [facility] - Received: 09/08/2023 01:12 PM [...] characteristic determined by the Dermatopathology Laboratory at [facility], directed by Dr. Jadiel Saba. These tests need not be, and therefore are not, approved by the [place] Food and Drug Administration. The tests are used for clinical purposes. Billing Codes Specimen Charges Stain Charges 78040 1 11:36 AM CDT DERMATOPATHOLOGY LABORATORY Embedded Images 11:36 AM CDT DERMATOPATHOLOGY LABORATORY Pathology/Cytolo gy TISSUE SPECIMEN FROM SKIN / Unknown 09/07/2023 9:24 AM CDT 09/08/2023 1:12 PM CDT Rosaline Roche DO LAB - PATHOLOGY/C YTOLOGY ORDERABLES DERMATOPATHOLOGY LABORATORY [facility] - Department of Dermatology [address] [phone] Care Teams Critical Care Nurse Relationship Specialty Start Date End Date Shamir Iqbal MD [address] [place] [address] PCP - General Family Medicine 06/03/23 Darci Negron MD [address] [facility] [address] [place] [phone] Cardiology 06/03/23 Jones Iqbal MD [address] [facility] [address] [place] [address] Ophthalmology 06/03/23 Rosaline Roche DO [address] [place] [address] Surgeon Dermatology 06/03/23
--- OUTSIDE RECORDS SUMMARY | 2024-04-13 15:25 | XMS_ITS | Referral Summary ---
Author Organization [facility] Address [address] [place] [address] Care Team Providers Care User Experience Designer Name Role Phone Micah Herman MD Primary Care Provider [phone] Allergies Active Allergy Reactions Criticality Noted Date [...] 02/25/2015 Influenza, Unspecified 11/30/2022 ZOSTER LIVE 01/11/2014 Social History Tobacco Use Types Packs/Day Years Used Date Smoking Tobacco: Never Smokeless Tobacco: Never Tobacco Cessation:Counseling Given: Not Answered Personal Safety Answer Date Recorded Getting School Help Needed Not on file 03/03 Comments Unknown Sex and Gender Information Value Date Recorded Sex Assigned at Not on file Legal Sex Female 9:42 AM MUSEUM ASSISTANT Gender Identity Female 01/27/2022 9:47 AM MUSEUM ASSISTANT Sexual Orientation Not on file Last Filed Vital Signs Vital Sign Reading Time Taken Comments Blood Pressure 125/80 05/27/2012 12:37 AM CDT Pulse 76 05/27/2012 12:37 AM CDT Temperature - - Respiratory Rate - - Oxygen Saturation 96% 05/27/2012 12:37 AM CDT Inhaled Oxygen Concentration - - Weight 82.1 kg (181 lb) 03/20/2023 10:42 AM MUSEUM ASSISTANT Height 168.9 cm (5' 6.5 ) 03/20/2023 10:42 AM CS T Body Mass Index 28.78 03/20/2023 10:42 AM MUSEUM ASSISTANT Plan of Treatment Not on file Procedures Procedure Name Priority Date/Time Associated Diagnosis [...] compared to prior imaging studies performed at [facility] on 02/06/2021, 04/08/2022 and 09/08/2022. There are [...] compared to prior imaging studies performed at [facility] on 02/06/2021, 04/08/2022 and 09/08/2022. There are [...] agrees with it. ACC# Date Time Exam [id number] Oct 13, 2013 10:38:00 [id number] BONE DEXA (2 sites) EXAMINATION: BONE DENSITOMETRY [...] MARSHALL M.D. on Oct 13 2013 2:04P [id number] Procedure Note Provider, MD Mary - 06/19/2016 KEILA MARSHALL M.D. GILLES MARES, FINAL REPORT The radiology attending physician has personally reviewed this study, and has reviewed and/or edited this written report and agrees with it. ACC# Date Time Exam [id number] Oct 13, 2013 10:38:00 [id number] BONE DEXA (2 sites) EXAMINATION: BONE DENSITOMETRY [...] MARSHALL M.D. on Oct 13 2013 2:04P [id number] Historical Provider MD WATKINS DXA PROCEDURES Final Result from Last 3 Months or Most Recently Relevant to Health Maintenance Insurance MEDICARE [facility] [address] AARP MEDICARE Care Teams User Experience Designer Relationship Specialty Start Date End Date Micah Herman MD PCP - General Internal Medicine 04/07/22
== END 2024-04-13 15:19 | disposition home or self-care (01) ==
PROVIDERS: PCP Family Medicine; Visit Provider Nurse Practitioner Family
DX: M53.3 Sacrococcygeal disorders, not elsewhere classified (principal); M16.11 Unilateral primary osteoarthritis, right hip
CPT/HCPCS: 72202; 73502

== ENCOUNTER 2024-10-03 09:00 | Emergency (ER) | payer MEDICARE, SELFPAY ==
--- NOTE | ~2024-10-03 | XR_ITS ---
XR hip LT 2V w AP pelvis 10/03/2024 10:41 Indication: Left hip pain after fall Procedure: AP pelvis and 2 views left hip Comparison: 04/13/2024 Findings: Pelvic rings intact. There is a left total hip arthroplasty. No fracture, subluxation or di slocation. Moderate osteoarthritis of the right hip. Sacral foramen are symmetric. Impression: 1: No acute fracture. Reviewed, dictated and finalized at location A. Impression: 1: No acute fracture.
--- OUTSIDE RECORDS SUMMARY | 2024-10-03 09:06 | XMS_ITS | Clinical Summary ---
Author Organization [facility] Address [address] [place] [address] Care Team Providers Care Motion Picture Scene Builder Name Role Phone Shamir Iqbal MD Primary Care Provider [phone] Darci Negron MD Unavailable [phone] Jones Iqbal MD Unavailable [phone] Rosaline Roche DO Unavailable [phone] Source Comments [facility],non-owned Affiliates and Associated Physician Practices is amultiple site organization consisting of ambulatory clinics and hospital sitesin [place], [place], [place] and [place]. This disclosure is being madepursuant to the Care Everywhere program and may not contain all information available regarding this patient. Last updated 17.[facility] Allergies Active Allergy Reactions Criticality Noted Date Comments Lisinopril Cough,Other Low 03/20/2023 Medications * Be aware that medications may not be up to date on this document. Alwaysverify current medications with the patient. atorvastatin (Lipitor) 40 MG tablet 1 tab(s) orally once a day Active Cholecalciferol 1.25 MG (26052 UT) 1 cap(s) orally once a week Active OneTouch Verio test strip USE DIRECTED DAILY 3 Active ipratropium (Atrovent) 0.06 % nasal spray USE 2 SPRAYS INTRANASALLY THREE TIMES DAILY 4 Active levocetirizine (Xyzal) 5 MG tablet 1 tab(s) orally once a day (in the evening) for 30 day(s) Active losartan (Cozaar) 100 MG tablet 1 tab(s) orally once a day Active metFORMIN (Glucophage) 500 MG tablet Take 2 (two) tablets by mouth once daily 4 Active naproxen (Naprosyn) 500 MG tablet Take 1 (one) tablet by mouth 2 times daily 3 Active Ozempic, 0.25 or 0.5 MG/DOSE, 2 MG/3ML SOPN INJECT 0.5 MG UNDER THE SKIN WEEKLY 3 Active olopatadine (Pataday) 0.2 % ophthalmic solution Instill 1 (one) drop into both eyes once daily Active Multiple Vitamins-Minera ls (EYE VITAMINS PO) Active Active Problems Problem Noted Date Diagnosed Date Dermatochalasis of both upper eyelids 06/05/2023 Type 2 diabetes mellitus without retinopathy 02/2018 Immunizations Immunization Administration Dates Next Due HEP A VACCINE, [...] drink = 0.6 oz pur e alcohol) Comments Unknown Sex and Gender Information Value Date Recorded Sex Assigned at Not on file Legal Sex Female 10:21 AM CDT Gender Identity Not on file Sexual Orientation [...] MONOFILAMENT 06/03/2023 DIABETES-HGB A1C 06/03/2023 COVID-19 VACCINE (2023- season) 2023 04/23/2020, 04/02/2020 DEPRESSION SCREENING 02/24/2024 DIABETES - URINE PROTEIN SCREENING 02/24/2024 MAMMOGRAM 04/08/2024 04/08/2022, 03/26, 02/06/2021, Additional history exists INFLUENZA VACCINE (#1) 2024 , 10/24/2019, 12/02/2018, Additional history exists Respiratory Syncytial Virus (RSV) [...] complete this topic MENINGOCOCCAL (Group B) VACCINE SHARED DECISION-MAKING Aged Out No longer eligible based on patient's age to complete this topic MENINGOCOCCAL GROUPS A/C/Y/W VACCINE Aged Out No longer eligible based on patient's age to complete this topic Insurance MEDICARE [facility] Member Subscriber Plan / Payer (Ef fective for All Dates) Name:Veronique Mahan Relation to Subscriber:Self Name:Veronique Mahan Payer ID:Not on file Group ID:Not on file Type:Commercial Address: [facility] [id number] [phone] [place] [address] [facility] MEDICARE Care Teams Motion Picture Scene Builder Relationship Specialty Start Date End Date Shamir Iqbal MD [address] [place] [phone] PCP - General Family Medicine 06/03/23 Darci Negron MD [address] [place] [phone] Cardiology 06/03/23 Jones Iqbal MD [address] [facility] [address] [place] [address] Ophthalmology 06/03/23 Rosaline Roche DO [address] [place] [address] Surgeon Dermatology 06/03/23
--- OUTSIDE RECORDS SUMMARY | 2024-10-03 09:06 | XMS_ITS | Clinical Summary ---
Author Organization [facility] Address [address] [place] [address] Care Team Providers Care Panel Raiser Operator Name Role Phone Micah Herman MD Primary Care Provider [phone] Allergies Active Allergy Reactions Criticality Noted Date [...] on file Legal Sex Female 9:42 AM SHIRT MARKER Gender Identity Female 01/27/2022 9:47 AM SHIRT MARKER Sexual Orientation Not on file Obstetrics History Last Filed Vital Signs Vital Sign Reading Time Taken Comments Blood Pressure 125/80 05/27/2012 12:37 AM CDT Pulse 76 05/27/2012 12:37 AM CDT Temperature - - Respiratory Rate - - Oxygen Saturation 96% 05/27/2012 12:37 AM CDT Inhaled Oxygen Concentration - - Weight 82.1 kg (181 lb) 03/20/2023 10:42 AM SHIRT MARKER Height 168.9 cm (5' 6.5) 03/20/2023 10:42 AM CS T Body Mass Index 28.78 03/20/2023 10:42 AM SHIRT MARKER Plan of Treatment Health Maintenance Due Date [...] - 2023-2 5 season) 2023 04/23/2020, 04/02/2020 Breast Cancer Screening-Mammogram 09/30/2024 10/01/2023, 04/08/2022, 02/06/2021, Additional history exists Influenza Vaccine (#1) 2024 , 10/24/2019, 12/02/2018, Additional history exists Hepatitis B Screening Completed [...] compared to prior imaging studies performed at [facility] on 02/06/2021, 04/08/2022 and 09/08/2022. There [...] compared to prior imaging studies performed at [facility] on 02/06/2021, 04/08/2022 and 09/08/2022. There [...] agrees with it. ACC# Date Time Exam [id number] Oct 13, 2013 10:38:00 [id number] BONE DEXA (2 sites) EXAMINATION: BONE DENSITOMETRY [...] -2.0 is below the expected range for age. A Z-score below the expected range for age in a patient with recent fractures and/or chronic corticosteroid treatment is consistent with a diagnosis of osteoporosis. b) In post menopausal women and males over 50, comparison of the measured bone mineral density with the average value in young normal subjects (the T-score) has been found to be useful in [...] MARSHALL M.D. on Oct 13 2013 2:04P [id number] Procedure Note Provider, MD Mary - 06/19/2016 KEILA MARSHALL M.D. GILLES MARES, FINAL REPORT The radiology attending physician has personally reviewed this study, and has reviewed and/or edited this written report and agrees with it. ACC# Date Time Exam [id number] Oct 13, 2013 10:38:00 [id number] BONE DEXA (2 sites) EXAMINATION: BONE DENSITOMETRY [...] -2.0 is below the expected range for age. A Z-score below the expected range for age in a patient with recent fractures and/or chronic corticosteroid treatment is consistent with a diagnosis of osteoporosis. b) In post menopausal women and males over 50, comparison of the measured bone mineral density with the average value in young normal subjects (the T-score) has been found to be useful in [...] MARSHALL M.D. on Oct 13 2013 2:04P [id number] Historical Provider MD WATKINS DXA PROCEDURES Final Result from Last 3 Months or Most Recently Relevant to Health Maintenance Insurance MEDICARE AARP [facility] [employer] [facility] Address: [address] [place] [address] [place] [address] [facility] MEDICARE Care Teams Panel Raiser Operator Relationship Specialty Start Date End Date Micah Herman MD PCP - General Internal Medicine 04/07/22
--- OUTSIDE RECORDS SUMMARY | 2024-10-03 09:06 | XMS_ITS | Encounter Summary ---
Author Organization [facility] Address [address] [place] [address] Care Team Providers Care Shot Peen Operator Name Role Phone Shamir Iqbal MD Primary Care Provider [phone] Darci Negron MD Unavailable [phone] Jones Iqbal MD Unavailable Rosaline Roche DO Unavailable Encounter Details Date Type Department Care Team (Late st Contact Info) Description 09/07/2023 Lab Requisition [facility] - DermPath Lab [address] [place] [address] Rosaline Roche DO [address] [facility] [address] [place] [address] Social History Tobacco Use Types Packs/Day Years [...] AM CDT) Case Report Dermatopathology Report Case: [id number] Authorizing Provider: Rosaline Roche DO Collected: 09/07/2023 09:24 AM Ordering Location: [facility] - Received: 09/08/2023 01:12 PM DermPath Lab Pathologist: Alexandra Barnes MD Specimen: Skin, left upper back 11:36 AM CDT DERMATOPATHOLOGY LABORATORY Final Diagnosis Specimen A. SKIN, left upper back: BASAL CELL CARCINOMA, NODULAR TYPE (C44.519) 11:36 AM CDT DERMATOPATHOLOGY LABORATORY at 1136 CDT Clinical History R/O BCC 11:36 AM CDT [...] characteristic determined by the Dermatopathology Laboratory at [facility], directed by Dr. Jadiel Saba. These tests need not be, and therefore are not, approved by the [place] Food and Drug Administration. The tests are used for clinical purposes. Billing Codes Specimen Charges Stain Charges 29201 1 11:36 AM CDT DERMATOPATHOLOGY LABORATORY Embedded Images 11:36 AM CDT DERMATOPATHOLOGY LABORATORY Pathology/Cytolo gy TISSUE SPECIMEN FROM SKIN / Unknown 09/07/2023 9:24 AM CDT 09/08/2023 1:12 PM CDT us Rosaline Roche DO LAB - PATHOLOGY/CYTOLOGY ORDERABLES Final Result DERMATOPATHOLOGY LABORATORY [facility] - Department of Dermatology [facility] Medicine [address] Floor [place], [place] [address] [phone] documented in this encounter Visit Diagnoses Not on filedocumented in this encounter Care Teams Shot Peen Operator Relationship Specialty Start Date End Date Shamir Iqbal MD [address] [place] [phone] PCP - General Family Medicine 06/03/23 Darci Negron MD [address] [place] [address] [address] [place] [phone] Cardiology 06/03/23 Jones Iqbal MD [address] [facility] [address] [place] [address] Ophthalmology 06/03/23 Rosaline Roche DO [address] [place] [address] Surgeon Dermatology 06/03/23 documented as of this encounter
[2024-10-03 09:11] VITALS: BP 107/64; PULSE 80; RESP 16; TEMP 36.7; O2SAT 99
--- NOTE | 2024-10-03 10:17 | ED.FALL ---
HPI - Fall General Chief Complaint: Fall Stated Complaint: fall, left hip pain Time Seen by Provider: 10/03/24 10:00 History of Present Illness HPI Narrative: Patient is a 69-year-old female who presents to the ER after sustaining a fall. She reports she was walking outside with her grandchildren when she accidentally stepped in a hole where concrete was missing. Patient reports she started turning her ankle but ended up landing on her left hip. She reports she has a history left hip replacement on that side. Patient reports she has so much pain she can not step on it. She denies any abdominal pain, back pain, knee pain, or urinary symptoms. Related Data Home Medications ?Medication ?Instructions ?Recorded ?Confirmed ?Last Taken ?Type cholecalciferol (vitamin D3) 25 25 mcg PO DAILY 03/04/22 04/13/24 Unknown History mcg (1,000 unit) capsule Allergies Allergy/AdvReac Type Severity Reaction Status Date / Time lisinopril AdvReac Mild cough Verified 04/28/24 10:25 Review of Systems Review of Systems: All systems reviewed & are unremarkable except as noted in HPI and below PMFSH Past Medical History Medical History Diverticula of colon History of skin cancer Hyperlipidemia Hypertension Irritable bowel syndrome with diarrhea Anxiety Osteopenia Post-menopausal Surgical History Surgical History History of cataract surgery History of Mohs surgery for squamous cell carcinoma in situ of skin H/O rotator cuff surgery History of hip replacement Left History of section x 2 Family History Family History Father Family history of mental disorder Depression Cerebrovascular accident Family history of chronic obstructive pulmonary disease Family history of lung disease Social History Social History Social History: Social Smoker Smoking packs per day: 0.25 Smoking cigarettes per day: 5.0 Years smoked: 40 Smoking pack-years: 10.00 Smoking status: Former smoker Second hand tobacco smoke exposure: Yes Smoking end date: 02/23/79 Alcohol intake: current Drinks per week: 10 Alcohol use details: socially Substance use type: does not use Lack of Transportation: No Lack of Food: Never True Current Housing: I Have Housing Concerned About Future Housing: No Difficulty Paying Gas/Electric Bills: No Difficulty Paying for Meds: No Currently Unemployed: No Education: Master's Degree or Higher Difficulty w/ Childcare or Family Care: No Gender identity (if verbalized by the patient): Female Course Vital Signs Vital signs: Vital Signs Temperature 36.7 C 10/03/24 09:11 Pulse Rate 80 10/03/24 09:11 Respiratory Rate 16 10/03/24 09:11 Blood Pressure 107/64 10/03/24 09:11 Pulse Oximetry 99 10/03/24 09:11 Oxygen Delivery Room Air 10/03/24 09:11 Temperature 36.7 C 10/03/24 09:11 Pulse Rate 80 10/03/24 09:11 Respiratory Rate 16 10/03/24 09:11 Blood Pressure 107/64 10/03/24 09:11 Pulse Oximetry 99 10/03/24 09:11 Oxygen Delivery Room Air 10/03/24 09:11 MDM - Fall MDM Narrative Medical decision making narrative: Patient is a 69-year-old female who presents to the ER after sustaining a fall. She reports she was walking outside with her grandchildren when she accidentally stepped in a hole where concrete was missing. Patient reports she started turning her ankle but ended up landing on her left hip. She reports she has a history left hip replacement on that side. Patient reports she has so much pain she can not step on it. She denies any abdominal pain, back pain, knee pain, or urinary symptoms. Labs Ordered: None necessary Imaging Ordered: Left hip x-ray Medications Ordered: [place] p.o., he Toradol IM Results: Patient's left hip x-ray indicates Pelvic rings intact. There is a left total hip arthroplasty. No fracture, subluxation or dislocation. Moderate osteoarthritis of the right hip. Sacral foramen are symmetric. Diagnosis: Left hip contusion Patient Education/Shared MDM: Results of imaging shared with patient. She endorses improvement of symptoms following medication administration. Patient strongly advised to follow-up with her PCP and orthopedic surgery (pt already has established care with one) as needed. She will not be discharged home with any new prescriptions, but was advised to use Tylenol and Ibuprofen together for pain control. Pt can also use lidocaine patches. Strict return precautions provided. Patient verbalized understanding and is in agreement with plan. Vital signs stable at time of discharge. All questions answered. Differential Diagnosis Differential diagnosis: Likely other (Pelvis fracture, hip fracture, hip dislocation) Imaging Data Attestation: I personally reviewed and interpreted this imaging study as follows: Radiologist's impression: Impressions Hip/Pelvis X-Ray 10/03/24 10:42 Impression: 1: No acute fracture. Discharge Plan Discharge Clinical Impression: Contusion of left hip and thigh, Fall Patient Disposition: Home Condition: Stable Instructions: Antibiotic Form, Crutch Instructions (ED), Contusion in Adults (ED) Additional Instructions: Please return to the ER with any worsening symptoms. Follow-up with primary care provider and/or your orthopedic surgeon as needed. Take all medications as prescribed, including regularly scheduled medications. You may use Tylenol (1000mg every eight hours) and ibuprofen (800mg every eight hours) together for pain control. Patient Language: Wolof Prescriptions: New ibuprofen 800 mg tablet 800 mg PO TID PRN (Reason: pain) Qty: 30 0RF lidocaine 5 % adhesive patch,medicated 1 patch topical DAILY Qty: 30 0RF Rx Instructions: leave on most painful area for up to 12 hrs No Action cholecalciferol (vitamin D3) 25 mcg (1,000 unit) capsule 25 mcg PO DAILY (DME) lancets [Accu-Chek Softclix Lancets] Misc See Rx Instructions .ROUTE .MEDSUPPLY Qty: 100 1RF Rx Instructions: USE TO CHECK BLOOD GLUCOSE LEVEL-verio flex azelastine 205.5 mcg (0.15 %) spray,non-aerosol 2 spray intranasal DAILY Qty: 30 0RF Rx Instructions: administer into each nostril naproxen 500 mg tablet 500 mg PO BID PRN (Reason: pain) Qty: 30 0RF Rx Instructions: take w/ food acetaminophen [Tylenol Extra Strength] 500 mg tablet 1,000 mg PO Q6H PRN (Reason: pain) Qty: 120 0RF (DME) blood sugar diagnostic Strip See Rx Instructions .ROUTE .MEDSUPPLY Qty: 100 1RF Rx Instructions: Use to check blood glucose every other day scopolamine base 1 mg over 3 days patch 3 day 1 patch transdermal Q3D PRN (Reason: motion sickness) Qty: 4 0RF metformin 500 mg tablet See Rx Instructions .ROUTE .COMPLEX Qty: 360 1RF Dose Instruction: TAKE 2 TABLETS BY MOUTH DAILY Rx Instructions: TAKE 2 TABLETS BY MOUTH DAILY losartan 100 mg tablet See Rx Instructions .ROUTE .COMPLEX Qty: 90 0RF Dose Instruction: TAKE 1 TABLET BY MOUTH DAILY Rx Instructions: TAKE 1 TABLET BY MOUTH DAILY atorvastatin 40 mg tablet See Rx Instructions .ROUTE .COMPLEX Qty: 90 0RF Dose Instruction: TAKE 1 TABLET BY MOUTH DAILY Rx Instructions: TAKE 1 TABLET BY MOUTH DAILY (DME) OneTouch Verio test strips Strip See Rx Instructions .Route Qty: 100 3RF Rx Instructions: As directed, daily Ozempic 2 mg/dose (8 mg/3 mL) pen injector 2 mg subcut WEEKLY Qty: 3 3RF Follow-up/Referrals: Shamir Iqbal MD [Primary Care Provider] - Time of Disposition: 11:26
--- OUTSIDE RECORDS SUMMARY | 2024-10-03 10:31 | XMS_ITS | Clinical Summary ---
Author Organization [facility] Address [address] [place] [address] Care Team Providers Care Vault Maker Name Role Phone Shamir Iqbal MD Primary Care Provider [phone] Darci Negron MD Unavailable [phone] Jones Iqbal MD Unavailable [phone] Rosaline Roche DO Unavailable [phone] Source Comments [facility],non-owned Affiliates and Associated Physician Practices is amultiple site organization consisting of ambulatory clinics and hospital sitesin [place], [place], [place] and [place]. This disclosure is being madepursuant to the Care Everywhere program and may not contain all information available regarding this patient. Last updated 17.[facility] Allergies Active Allergy Reactions Criticality Noted Date Comments Lisinopril Cough,Other Low 03/20/2023 Medications * Be aware that medications may not be up to date on this document. Alwaysverify current medications with the patient. atorvastatin (Lipitor) 40 MG tablet 1 tab(s) orally once a day Active Cholecalciferol 1.25 MG (21236 UT) 1 cap(s) orally once a week [...] age to complete this topic Insurance MEDICARE [facility] Member Subscriber Plan / Payer (Ef fective for All Dates) Name:Veronique Mahan Relation to Subscriber:Self Name:Veronique Mahan Payer ID:Not on file Group ID:Not on file Type:Commercial Address: [facility] [id number] [phone] [place] [address] [facility] MEDICARE Care Teams Vault Maker Relationship Specialty Start Date End Date Shamir Iqbal MD [address] [place] [phone] PCP - General Family Medicine 06/03/23 Darci Negron MD [address] [place] [phone] Cardiology 06/03/23 Jones Iqbal MD [address] [facility] [address] [place] [address] Ophthalmology 06/03/23 Rosaline Roche DO [address] [place] [address] Surgeon Dermatology 06/03/23
--- OUTSIDE RECORDS SUMMARY | 2024-10-03 10:31 | XMS_ITS | Encounter Summary ---
Author Organization [facility] Health Address [address] [place] [address] Care Team Providers Care Farmworker Rice Name Role Phone Shamir Iqbal MD Primary Care Provider [phone] Darci Negron MD Unavailable [phone] Jones Iqbal MD Unavailable Rosaline Roche DO Unavailable [phone] Encounter Details Date Type Department Care Team (Late st Contact Info) Description 09/07/2023 Lab Requisition [facility] - DermPath Lab [address] [place] [address] Rosaline Roche DO [address] [facility] [address] [place] [address] Social History Tobacco Use Types Packs/Day Years [...] AM CDT) Case Report Dermatopathology Report Case: [id number] Authorizing Provider: Rosaline Roche DO Collected: 09/07/2023 09:24 AM Ordering Location: [facility] - Received: 09/08/2023 01:12 PM [...] characteristic determined by the Dermatopathology Laboratory at [facility], directed by Dr. Jadiel Saba. These tests need not be, and therefore are not, approved by the [place] Food and Drug Administration. The tests are used for clinical purposes. Billing Codes Specimen Charges Stain Charges 86753 1 11:36 AM CDT DERMATOPATHOLOGY LABORATORY Embedded Images 11:36 AM CDT DERMATOPATHOLOGY LABORATORY Pathology/Cytolo gy TISSUE SPECIMEN FROM SKIN / Unknown 09/07/2023 9:24 AM CDT 09/08/2023 1:12 PM CDT us Rosaline Roche DO LAB - PATHOLOGY/CYTOLOGY ORDERABLES Final Result DERMATOPATHOLOGY LABORATORY [facility] - Department of Dermatology [facility] Medicine [address] [place], [place] [address] [phone] documented in this encounter Visit Diagnoses Not on filedocumented in this encounter Care Teams Farmworker Rice Relationship Specialty Start Date End Date Shamir Iqbal MD [address] [place] [phone] PCP - General Family Medicine 06/03/23 Darci Negron MD [address] [place] [address] [address] [place] [id number] Cardiology 06/03/23 Jones Iqbal MD [address] [facility] [address] [place] [address] Ophthalmology 06/03/23 Rosaline Roche DO [address] [place] [address] Surgeon Dermatology 06/03/23 documented as of this encounter
--- OUTSIDE RECORDS SUMMARY | 2024-10-03 10:31 | XMS_ITS | Patient Health Record ---
Author Organization [email or web address] [place] ([address]) Address [address] [place] [address] Care Team Providers Care Clerical And Administrative Workers Name Role Phone Rasheed Shamir Primary Care Provider Joann Orr Unavailable [phone] Allergies Allergen (clinical drug ingredient) Drug/Non Drug Allergy documented on EMR Reaction Allergy Type Onset Date Status lisinopril Lisinopril other reaction Drug Allergy Active Reason For Referral No Information Medications Medication SIG (Take, Route, Frequency, Duration) Notes Start Date End Date Status Losartan Potassium 100 MG 1 tab(s) orally once a day Active LEVOCETIRIZINE 5 mg 1 tab(s) orally once a day (in the evening); Duration: 30 day(s) Active OZEMPIC 2 MG/1.5 ML (0.25 MG OR 0.5 MG DOSE) DIRECTED SUBCUTANEOUSLY ONCE A WEEK *Please review for potential replacement for e-prescription and drug interaction check* Active Atorvastatin Calcium 40 MG 1 tab(s) orally once a day Active Vitamin D3 1250 MCG 1 CAP(S) ORALLY ONCE A WEEK *Please review and pick correct strength-formulat ion from PerBlue options. If intended option is not shown, discontinue and re-order from Quick Search* Active Ipratropium [place] 0.06 % 2 spray(s) intranasally 3 times a day; Duration: 30 days Active Nasal Washes N/A as directed intranasally 05/18/2024 Active metFORMIN HCl 1000 MG 1 TAB(S) ORALLY ON CE A DAY *Please review and pick correct strength-formulat ion from Medispan options. If intended option is not shown, discontinue and re-order from Quick Search* Active Social History Tobacco Use: Social History Observation Description Date Details (start date - stop date) Never Smoker NA - NA Sex Assigned At : Social History Observation Description Sex Assigned At Female Smoking Smart Form: Question Answer Notes Are you a: never smoker AUDIT-C (Standard) Question Answer Notes Did you have a drink contain ing alcohol in the past year? Yes How often did you have a dri nk containing alcohol in the past year? Monthly or less (1 point) How many drinks did you have on a typical day when you were drinking in the past year? 1 or 2 drinks (0 point) How often did you have six o r more drinks on one occasion in the past year? Never (0 point) Points 1 Interpretation Negative Problems Problem Type SNOMED Code ICD Code Onset Dates Problem Status W/U Status Risk Notes Problem Allergy to penicillin (79405037) Allergy status to penicillin (Z88.0) Active confirmed Problem Chronic allergic conjunctivitis (71008118) Other chronic allergic conjunctivitis (H10.45) Active confirmed Problem Allergic rhinitis caused by pollen (disorder) (36843730) Allergic rhinitis due to pollen (J30.1) Active confirmed Problem Allergic rhinitis (21996674) Other allergic rhinitis (J30.89) Active confirmed Problem Allergic rhinitis caused by animal hair and dander (340530563375945) Allergic rhinitis due to animal (cat) (dog) hair and dander (J30.81) Active confirmed Vital Signs Blood pressure diastolic 70 mm Hg 05/18/2024 Oximetry 99 % 05/18/2024 Height 66 in 05/18/2024 Blood pressure systolic 120 mm Hg 05/18/2024 Weight 175.4 lbs 05/18/2024 BMI 28.31 kg/m2 05/18/2024 Encounters Encounter Location Date Provider Diagnosis [facility] [address] [facility] [address] [place] [phone] 05/18/2024 Joann Flores Allergic rhinitis du e to pollen J30.1 ; Allergic rhinitis due to animal (cat) (dog) hair and dander J30.81 ; Other allergic rhinitis J30.89 and Other chronic allergic conjunctivitis H10.45 Assessments Encounter Date Diagnosis (ICD Code) Assessment Notes Treatment Notes Treatment Clinical Notes Section Notes 05/18/2024 Allergic rhinitis due to pollen (ICD-10 - J30.1) Veronique clearly suffers from atopic disease based upon our skin testing and clinical history. 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 Good control with ipratropium and instructed to start Xyzal if needed. 05/18/2024 Allergic rhinitis due to animal (cat) (dog) hair and dander (ICD-10 - J30.81) Follow allergen avoidance, meds and consider SCIT as an adjunctive treatment to current regimen 05/18/2024 Other allergic rhinitis (ICD-10 - J30.89) Follow allergen avoidance, meds and consider SCIT as an adjunctive treatment to current regimen 05/18/2024 Other chronic allergic conjunctivitis (ICD-10 - H10.45) Given ocular signs and symptoms I encouraged allergy avoidance measures and meds as above. If symptoms persist, consider adding additional medications including intraocular antihistamine/m ast cell stabilizer, PRN 05/18/2024 Other Plan Of Treatment Next Appt Details Provider Name:Joann das, 05/17/2025 08:45:00 AM, [address] [facility], [facility] [address], [address], Insurance Providers Payer Name Payer Address Payer Phone Subscriber Number Group Number Insured Name Patient Relationship to Insured Coverage Start Date Coverage End Date [employer] (Medicare) Attention Claims [address] [place] [address] [id number] Helena farley Veronique Self - patient is the insured [facility] [address] [place] [address] [id number] Helena farley Veronique Self - patient is the insured Medical (General) History Medical History History ICD Code Hypertension 401.9 Type 2 diabetes mellitus without complic ations E11.9 Hypercholesterolemia 272.0 Surgical History Surgery Date(Month/Year) Left Hip Replacement 2012 cataract removal Hospitalization History Reason Date(Month/Year) Left Hip Replacement 2012
--- OUTSIDE RECORDS SUMMARY | 2024-10-03 10:31 | XMS_ITS | Clinical Summary ---
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 Sexual Orientation Not on file Obstetrics History Last Filed Vital Signs Vital Sign Reading Time Taken Comments Blood Pressure 125/80 05/27/2012 12:37 AM CDT Pulse 76 05/27/2012 12:37 AM CDT Temperature - - Respiratory Rate - - Oxygen Saturation 96% 05/27/2012 12:37 AM CDT Inhaled Oxygen Concentration - - Weight 82.1 kg (181 lb) 03/20/2023 10:42 AM 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 There [...] compared to prior imaging studies performed at [facility] on 02/06/2021, 04/08/2022 and 09/08/2022. There [...] agrees with it. ACC# Date Time Exam [id number] Oct 13, 2013 10:38:00 [id number] BONE DEXA (2 sites) EXAMINATION: BONE DENSITOMETRY [...] MARSHALL M.D. on Oct 13 2013 2:04P [id number] Procedure Note Provider, MD Mary - 06/19/2016 KEILA MARSHALL M.D. GILLES MARES, FINAL REPORT The radiology attending physician has personally reviewed this study, and has reviewed and/or edited this written report and agrees with it. ACC# Date Time Exam [id number] Oct 13, 2013 10:38:00 [id number] BONE DEXA (2 sites) EXAMINATION: BONE DENSITOMETRY [...] MARSHALL M.D. on Oct 13 2013 2:04P [id number] Historical Provider MD WATKINS DXA PROCEDURES Final Result from Last 3 Months or Most Recently Relevant to Health Maintenance Insurance MEDICARE [employer] PENDING SALE TO [facility] [employer] [facility] [place] [address] [facility] MEDICARE Care Teams Client Account Specialist Relationship Specialty Start Date End Date Micah Herman MD PCP - General Internal Medicine 04/07/22
[2024-10-03] MEDS: HYDROcodone/acetaminophen (*CRX) 5-325 MG TABLET 1 TAB PO (11:28)
[2024-10-03] MEDS: KETOROLAC 30 MG/ML VIAL (*BKC) IM (11:29)
== END 2024-10-03 11:48 | disposition home or self-care (01) ==
PROVIDERS: Emergency Provider Registered Nurse; PCP Family Medicine
DX: S70.02XA Contusion of left hip, initial encounter (principal); S70.12XA Contusion of left thigh, initial encounter; I10 Essential (primary) hypertension; E78.5 Hyperlipidemia, unspecified; K58.0 Irritable bowel syndrome with diarrhea; M85.80 Other specified disorders of bone density and structure, unspecified site; Z96.642 Presence of left artificial hip joint; Z85.828 Personal history of other malignant neoplasm of skin; Z87.891 Personal history of nicotine dependence; Z98.49 Cataract extraction status, unspecified eye; Z79.85 Long-term (current) use of injectable non-insulin antidiabetic drugs; Z79.84 Long term (current) use of oral hypoglycemic drugs; Z79.899 Other long term (current) drug therapy; W18.39XA Other fall on same level, initial encounter
CPT/HCPCS: 73502; 96372; 99283; A9270; J1885